=== PATIENT | male | born 1980 | race African-American/Black ===

== ENCOUNTER 2017-04-27 21:55 | Emergency (ER) | payer OTHER ==
[~2017-04-27] VITALS: Ht 198.1 cm; Wt 130.0 kg
[~2017-04-27 21:55] MED LIST: BACTRIM DS1 TAB PO; LORTAB 7.57.5 MG PO; NO HOME MEDS; NO MEDS; ZITHROMAX250 MG OR
[2017-04-27 22:44] LABS: INFLUENZA A NONE DETECTED (NONE DETECT); INFLUENZA B NONE DETECTED (NONE DETECT)
[2017-04-27] MEDS ORDERED: ROBITUSSIN AC10 ML PO (22:56)
[2017-04-27] MEDS ORDERED: ZPAK PO (22:56)
[2017-04-27 23:00] VITALS: BP 160/85
== END 2017-04-27 23:02 | disposition home or self-care (01) | DRG 153 ==
LOC: ED 21:55
PROVIDERS: Emergency Medicine
DX: J06.9 Acute upper respiratory infection, unspecified (principal); R05 Cough; R50.9 Fever, unspecified

== ENCOUNTER 2020-02-28 03:11 | Emergency (ER) | payer SELFPAY ==
[~2020-02-28] VITALS: Ht 198.1 cm; Wt 124.0 kg
[~2020-02-28 03:11] MED LIST changes: +ROBITUSSIN AC10 ML PO; +ZPAK PO
[2020-02-28 03:45] LABS: HEMATOCRIT 39.4 % (39.0-50.0); HEMOGLOBIN 13.9 g/dl (14.0-18.0); MEAN CELL VOLUME 79.3 fL CALC (80.0-100.0); MEAN CORPUSCULAR HGB CONC 35.3 g/dL CAL (32.0-36.0); NEUT# 2.76 thou/uL (1.82-7.42); RED BLOOD COUNT 4.97 mill/uL (4.70-6.10); RED CELL DISTRI WIDTH 13.6 % (11.5-15.5)
[2020-02-28 04:03] LABS: ALBUMIN 3.8 g/dL (3.2-5.0); ALKALINE PHOSPHATASE 58 u/l (38-126); ANION GAP 13 (6-22 (CALC)); BILIRUBIN, TOTAL 0.8 mg/dL (0.0-1.4); BUN 9 mg/dL (9-20); BUN/CREATININE RATIO 8 (12-20 (CALC)); CARBON DIOXIDE 25 mmol/l (22-30); CHLORIDE 103 mmol/l (95-108); CREATININE 1.2 mg/dL (0.7-1.3); GFR > 60 ML/MIN (>=60 (CALC)); GFR FOR AFR.AMER. > 60 ML/MIN (>=60 (CALC)); SGOT/AST 38 u/l (17-59); SODIUM 136 mmol/l (137-146); TOTAL PROTEIN 6.9 g/dL (6.3-8.2)
[2020-02-28 04:09] LABS: D-DIMER 0.24 mg/L (0.19-0.60)
[2020-02-28 04:14] LABS: MYOGLOBIN 91 ng/mL (0 - 121)
[2020-02-28] MEDS ORDERED: VENTOLIN HFA IN (04:44)
[2020-02-28 05:05] VITALS: BP 107/59
--- NOTE | 2020-03-02 09:52 | NUR ---
Notified patient of positive Covid results. Patient states he is "feeling fine" Advised patient to quarantine until contacted by the [facility]. Advised patient to return to the ED with any difficulty breathing. Patient verbalized underestanding.
== END 2020-02-28 05:05 | disposition home or self-care (01) | DRG 179 ==
LOC: ED 03:11
PROVIDERS: Family Medicine
DX: U07.1 COVID-19 (principal)

== ENCOUNTER 2020-04-18 14:34 | Emergency (ER) | payer MEDICAID ==
[~2020-04-18] VITALS: Ht 198.1 cm; Wt 118.0 kg
[~2020-04-18 14:34] MED LIST changes: +VENTOLIN HFA IN
[2020-04-18 15:22] LABS: URINE BILIRUBIN - DIPSTICK NEGATIVE (NEGATIVE); URINE BLOOD DIPSTICK NEGATIVE (NEGATIVE); URINE COLOR YELLOW; URINE GLUCOSE - DIPSTICK NEGATIVE (NEGATIVE); URINE KETONE NEGATIVE (NEGATIVE); URINE LEUK ESTERASE NEGATIVE (NEGATIVE); URINE NITRITE - DIPSTICK NEGATIVE (Negative); URINE PROTEIN - DIPSTICK NEGATIVE (NEG-TRACE); URINE SPECIFIC GRAVITY 1.025; URINE UROBILINOGEN - DIPSTICK 0.2 E.U./dL (0.2)
[2020-04-18 15:23] LABS: HEMATOCRIT 39.6 % (39.0-50.0); HEMOGLOBIN 13.9 g/dl (14.0-18.0); IMMATURE GRANULOCYTES 0.2 % (0.0-5.0); MEAN CELL VOLUME 81.1 fL CALC (80.0-100.0); MEAN CORPUSCULAR HGB 28.5 pG CALC (26.0-32.0); MEAN CORPUSCULAR HGB CONC 35.1 g/dL CAL (32.0-36.0); NEUT# 5.63 thou/uL (1.82-7.42); RED BLOOD COUNT 4.88 mill/uL (4.70-6.10); RED CELL DISTRI WIDTH 15.3 % (11.5-15.5)
[2020-04-18 15:47] LABS: ALBUMIN 4.1 g/dL (3.2-5.0); ALKALINE PHOSPHATASE 74 u/l (38-126); AMYLASE 114 u/l (30-110); ANION GAP 9 (6-22 (CALC)); BILIRUBIN, TOTAL 0.7 mg/dL (0.0-1.4); BUN 11 mg/dL (9-20); BUN/CREATININE RATIO 10 (12-20 (CALC)); CARBON DIOXIDE 28 mmol/l (22-30); CHLORIDE 105 mmol/l (95-108); CREATININE 1.1 mg/dL (0.7-1.3); GFR > 60 ML/MIN (>=60 (CALC)); GFR FOR AFR.AMER. > 60 ML/MIN (>=60 (CALC)); LIPASE 145 u/l (23-300); POTASSIUM 3.8 mmol/l (3.5-5.1); SGOT/AST 24 u/l (17-59); SODIUM 138 mmol/l (137-146); TOTAL PROTEIN 7.1 g/dL (6.3-8.2)
[2020-04-18] MEDS ORDERED: CARAFATE1 GM PO (17:18)
[2020-04-18 17:44] VITALS: BP 134/78
== END 2020-04-18 17:44 | disposition home or self-care (01) ==
LOC: ED 14:34
DX: R10.13 Epigastric pain (principal)
CPT/HCPCS: Q9967